=== PATIENT | female | born 1955 | race American Indian/Alaskan Native ===

== ENCOUNTER 2020-11-08 12:42 | Emergency (ER) | payer SELFPAY ==
[2020-11-08] MEDS ORDERED: NORepinephrine/NS 4 MG-250 ML 4 MG/250 ML BAG IV ONE (13:00)
[2020-11-08 13:50] LABS: Mean Corpuscular HGB Conc 29 % (30-34); Mean Corpuscular Volume 97 fl (79-97); Platelet Count 121 K/mm3 (140-440); Red Blood Count 3.52 M/mm3 (3.65-5.03)
--- NOTE | 2020-11-08 13:50 | XRay Report ---
CHEST 1 VIEW, 11/08/2020 at 1:37 PM CLINICAL INFORMATION/INDICATION: Cardiac arrest COMPARISON: None. FINDINGS: SUPPORT DEVICES: Endotracheal tube is present with tip approximately 4 cm above the level the kory. HEART: The cardiac silhouette appears mildly enlarged. LUNGS/PLEURA: There are diffuse bilateral pulmonary opacities. No large pleural effusion or pneumotho rax is visualized. ADDITIONAL FINDINGS: No additional acute findings. There is mild gaseous distention of the stomach. IMPRESSION: 1. Placement of endotracheal tube with tip approximately 4 cm above the level the kory. 2. Diffuse bilateral pulmonary opacities suggestive of bilateral pneumonia. Signer Name: Mirela Valencia MD Signed: 11/08/2020 1:46 PM Workstation Name: [id number]
[2020-11-08 13:57] VITALS: BP 83/43
--- NOTE | 2020-11-08 14:02 | Emergency Department Report ---
ED CPR HPI - General Stated Complaint: CA Time Seen by Provider: 11/08/20 13:19 Source: family, EMS Limitations: Physical Limitation - History of Present Illness Initial Comments: 64-year-old female, history of vertigo, presents to ED in cardiac arrest. EMS reports daughter stated that patient was found unresponsive. Daughter reports patient has had flu-like illness over the last week, consisting of cough and headache. Patient did not get tested for Covid. Patient is unvaccinated against COVID-19. Upon EMS arrival, patient in asystole. Vipul tube was placed. Patient did achieve ROSC, however lost pulses again and went into asystole en route. Patient received a total of epi x5, along with initiation of an epinephrine drip, and sodium bicarb x1. ACLS ongoing times approximately 35 minutes with EMS prior to ED arrival. MD Complaint: found unresponsive -: minute(s) (35) Place: home Bystander CPR Performed: Yes Shock Advised: No Initial Findings in the Field: unresponsive, no respirations, no pulse, other rhythm (asystole) ROSC in the Field: Yes (x1) Treatments Prior to Arrival: other airway device (Vipul tube) - Related Data Allergies Allergy/AdvReac Type Severity Reaction Status Date / Time Unable to Assess Allergy Verified 11/08/20 14:36 ED Review of Systems ROS: Stated complaint: CA Other details as noted in HPI Comment: Unobtainable due to pts medical conditions Respiratory: cough Neurological: headache ED Physical Exam - Head Head exam: Present: atraumatic, normocephalic - Eye Pupils: Present: other (fixed and dilated bilaterally) - ENT ENT exam: Present: other (Vipul tube inplace) - Neck Neck exam: Present: normal inspection - Respiratory Respiratory exam: Present: rhonchi, other (No spontaneous breaths) - Cardiovascular Cardiovascular Exam: Present: other (No palpable pulse) - GI/Abdominal GI/Abdominal exam: Present: distended - Extremities Exam Extremities exam: Present: normal inspection - Neurological Exam Neurological exam: Present: other (GCS 3) - Skin Skin exam: Present: warm, dry, intact, normal color ED Course Vital Signs 11/08/20 11/08/20 11/08/20 12:58 13:07 14:56 Pulse Rate 89 Blood Pressure 83/43 O2 Sat by Pulse 88 83 L 0 L Oximetry - Reevaluation(s) Reevaluation #1: 11/08/20 14:27 Had an extensive talk with the family regarding patient's condition. Patient is currently intubated with O2 sats in the 70s while on the vent. Levophed hanging and systolic blood pressure in the 70s. Family informed that patient is in grave condition. Walked family to the room to see patient, and discovered that patient had again, lost pulses. 1 round of CPR was performed, and patient achieved ROSC. Family eventually made the decision to withdraw care. Time of was called at 14:11. - Intubation Time Out Performed: Yes Sedative: none Laryngoscope: fiberoptic video scope Size: 3 ET Tube Size: 7.5 Tube Secured Depth (cm): 22 Tube Secured Location: teeth Tube Placement Confirmation: visualized tube passing t, equal breath sounds bilat, no breath sounds over epi, confirmation by capnometr Patient Tolerated Procedure: well Intubation Complications: none ED Medical Decision Making - Lab Data Result diagrams: 11/08/20 13:40 - EKG Data -: EKG Interpreted by Hi EKG shows normal: sinus rhythm, axis, QRS complexes, ST-T waves Rate: normal - EKG Data Interpretation: no acute changes, other (Prolonged QT) - Radiology Data Radiology results: report reviewed, image reviewed - Medical Decision Making 64-year-old female presents to ED in cardiac arrest. Chest x-ray concerning for COVID-19 pneumonia. Family reports patient has had flu-like symptoms over the last week. Patient found unresponsive at home. Patient has been in and out of cardiac arrest since initial contact with EMS. Please see nurses note for code details here in the ED. Vipul tube was changed out for ET tube. Patient was placed on vent. Levophed was initiated. Despite being on the vent and pressors, patient remained hypoxic and hypotensive. When disconnected from the ventilator and bagged aggressively via ET tube, O2 sats would raise to the 90s. I had a long and extensive talk with family members at bedside. Ultimately, family decided to withdraw care. Time of was called at 14:11. Family members were urged to quarantine for 14 days and obtain outpatient COVID-19 testing due to their contact with the patient. - Differential Diagnosis Pneumonia, PE, arrhythmia Critical Care Time: Yes Critical care time in (mins) excluding proc time.: 35 Critical care attestation.: If time is entered above; I have spent that time in minutes in the direct care of this critically ill patient, excluding procedure time. Critical Care Time: 35 ED Disposition Clinical Impression: Cardiac arrest, Suspected 2019 novel coronavirus infection Disposition: 20 Is pt being admited?: No Condition: Stable Referrals: PRIMARY CARE, [Primary Care Provider] - 3-5 Days Time of Disposition: 14:22
[2020-11-08 14:06] LABS: INR 2.02 (0.87-1.13)
[2020-11-08 14:07] LABS: Calcium 8.5 mg/dL (8.4-10.2)
[2020-11-08 14:11] LABS: Albumin 2.9 g/dL (3.9-5); Bilirubin,Direct < 0.2 mg/dL (0-0.2)
[2020-11-08 14:23] LABS: Alanine Aminotransferase 1785 units/L (7-56)
[2020-11-08 15:26] LABS: Hemoglobin 9.7 gm/dl (10.1-14.3)
[2020-11-08] MEDS ORDERED: SODIUM BICARB 8.4% 50 MEQ/50 ML SYRINGE IV ONE (23:58)
[2020-11-08] MEDS ORDERED: EPINEPHrine 1 MG/10 ML SYRINGE ONE (23:58)
--- NOTE | 2020-11-12 08:46 | Electrocardiograph Report ---
[facility] Test Date: 2020-11-08 Test Time: 13:26:02 Pat Name: POOJA BHATIA Department: Room: Gender: F Emr Analyst: CHIP : [id number] Requested By: JEFFERY CASTELLANOS Order Number: [id number] Reading MD: Milton Currie Measurements Intervals [place] Rate: 87 P: 52 WI: 186 QRS: 27 QRSD: 88 T: 52 QT: 435 QTc: 523 Interpretive Statements Sinus rhythm Prolonged QT interval No previous ECG available for comparison Electronically Signed On 11-12-2020 8:46:04 EDT by Milton Currie
== END 2020-11-08 16:30 ==
LOC: ED 12:42
DX: I46.9 Cardiac arrest, cause unspecified (principal); Z20.822 Contact with and (suspected) exposure to COVID-19
CPT/HCPCS: 31500; 36415; 71045; 80048; 80076; 82140; 82728; 82962; 83615; 84145; 84484; 85025; 85379; 85610; 85730; 86140; 87040; 92950; 93005; 99291; J0171; 94002